=== PATIENT | female | born 2000 | race Caucasian/White ===

== ENCOUNTER 2018-04-26 09:21 | Emergency (ER) | payer BC ==
[2018-04-26 09:57] VITALS: BP 108/69
--- NOTE | 2018-04-26 10:26 | UC ---
Laceration HPI - HPI Summary HPI Summary: 18 yo female presents with laceration to left 5th digit tip. She tells me that about 1 hour [employer] she was cutting a piece of bread and the knife slipped - she sustained a laceration to her left 5th digit. She believes her last tetanus shot was within the last 2-3 years. - History Of Current Complaint Chief Complaint: UCLaceration Stated Complaint: FINGER LAC Time Seen by Provider: 04/26/18 10:26 Hx Obtained From: Patient Hx Last Menstrual Period: 04/22/18 Laceration Location: Finger Mechanism Of Injury: Sharp Trauma Onset/Duration: Sudden Onset Severity: Mild Pain Intensity: 4 Pain Scale Used: 0-10 Numeric - Allergies/Home Medications Allergies/Adverse Reactions: Allergies Allergy/AdvReac Type Severity Reaction Status Date / Time No Known Allergies Allergy Verified 04/26/18 09:57 PMH/Surg Hx/FS Hx/Imm Hx - Additional Past Medical History Additional PMH: None - Surgical History Surgical History: Yes Surgery Procedure, Year, and Place: 10/2014-PINS PLACED LEFT FOREARM, and removal of pins - Family History Known Family History: Positive: None - Social History Occupation: Student Lives: With Family Alcohol Use: None Substance Use Type: None Smoking Status (MU): Never Smoked Tobacco Have You Smoked in the Last Year: No - Immunization History Vaccination Up to Date: Yes Review of Systems Constitutional: Negative Skin: Other - Laceration lect pinky finger Respiratory: Negative Cardiovascular: Negative Neurovascular: Negative Neurological: Negative Psychological: Negative All Other Systems Reviewed And Are Negative: Yes Physical Exam - Summary Physical Exam Summary: GENERAL: NAD. WDWN. No pain distress. SKIN: LEFT 5th digit: Distal finger pad with 5mm linear superficial laceration. Well approximated at rest. No subcutaneous tissue exposed. No gaping. No active bleeding, FB, or drainage. CHEST: No accessory muscle use. Breathing comfortably and in no distress. CV: Pulses intact. Cap refill <2seconds NEURO: Alert. PSYCH: Age appropriate behavior. Triage Information Reviewed: Yes Vital Signs: Initial Vital Signs Temp 98.3 F 04/26/18 09:53 Pulse 69 04/26/18 09:53 Resp 18 04/26/18 09:53 BP 108/69 04/26/18 09:53 Pulse Ox 100 04/26/18 09:53 Vital Signs Reviewed: Yes Laceration Repair - Laceration Repair 1 Description: Linear Laceration Size After Repair: Length (cm) - 0.5 Modified For Repair: No Cleansing Completed Via Routine Prep: Yes Closure Material: Skin Adhesive Laceration Course/Dx - Course/Dx Course Of Treatment: Wound was cleansed with 50mL NS, dermabond applied, band- aid applied. Advised to keep covered until fully healed - Differential Dx - Laceration/Wound Provider Diagnoses: Laceration left 5th digit Discharge - Sign-Out/Discharge Documenting (check all that apply): Patient Departure All imaging exams completed and their final reports reviewed: No Studies - Discharge Plan Condition: Stable Disposition: HOME Patient Education Materials: Laceration (DC), Skin Adhesive Care (ED) Referrals: Trey Keller MD [Primary Care Provider] - Additional Instructions: If you develop a fever, shortness of breath, chest pain, new or worsening symptoms - please call your PCP or go to the ED. 1) Please keep the area bandaged until well healed (approximately 3-5 days) - Billing Disposition and Condition Condition: STABLE Disposition: Home
== END 2018-04-26 10:50 | disposition home or self-care (01) ==
LOC: UCEAST 09:21
DX: S61.217A Laceration without foreign body of left little finger without damage to nail, initial encounter (principal); W26.0XXA Contact with knife, initial encounter; Y93.G1 Activity, food preparation and clean up; Y92.9 Unspecified place or not applicable
CPT/HCPCS: 12001; 12031; 99211; G0463